=== PATIENT | female | born 1975 | race Caucasian/White ===

== ENCOUNTER 2021-07-01 10:38 | Outpatient (CLI) | payer OTHER, SELFPAY ==
--- NOTE | 2021-06-30 | BRBX_PTH ---
PATIENT: GINGER OSBORN LOC: [facility] U#:[id number] AGE/SX: 45/F ROOM: RE07/01/[address]: Dr. Radhames Nichols MD : 1975 BED: DIS: 07/01/2021 SPEC #: [id number] RECD: 07/01/21 10:29 STATUS: COOPER SHARYN #: [id number] JONATHAN: 06/30/21 00:[address]: Radhames Nichols DEPT: SURGICAL PATHOLOGY RECD BY: Donnie Castillo ENTERED: 07/01/21 12:04 SP TYPE: BREAST BX OTHR DR: Dr. Elza Winn MD Tissues: Left breast, NOS Procedures: Surgery Specimen Level IV HEADER OPERATION: Left breast biopsy PRE-OP DIAGNOSIS: Left breast mass TISSUE SUBMITTED: Left breast MICROSCOPIC DIAGNOSIS Left breast, core biopsy: Fibroadenoma. AM:memo 07/02/2021 MICROSCOPIC DESCRIPTION Slides are reviewed. GROSS DESCRIPTION Received in fixative is one container labeled with the patient's name and designated left breast. The specimen consists of multiple elongated fragments of soto-yellow fibroadipose tissue that in aggregate measure 1.5 x 1 x 0.1 cm. The entire specimen is submitted in one cassette. / SJ:rg 07/01/2021 TC:1 CPT: 54376
== END 2021-07-01 23:59 | disposition home or self-care (01) ==
LOC: LABSPEC 10:40
PROVIDERS: PCP Internal Medicine Infectious Disease; Referring Provider Surgery; Visit Provider Surgery
DX: N63.20 Unspecified lump in the left breast, unspecified quadrant (principal)
CPT/HCPCS: 88305